=== PATIENT | female | born 1970 | race Caucasian/White ===

== ENCOUNTER 2018-07-12 17:19 | Inpatient (IN) | payer OTHER ==
[~2018-07-12] VITALS: Ht 162.6 cm; Wt 81.6 kg
[2018-07-12 19:00] VITALS: BP 105/45
--- NOTE | 2018-07-12 19:00 | NUR ---
RECEIVED BEDSIDE REPORT FROM YOSEF REA, PATIENT IN BED, C/O HEADACHE 08/26, V/S TAKEN NOTED BP 105/48 HR 74. IV IN LEFT AC 20G SL, DRESSING INTACT. ABLE TO FOLLOW COMMANDS, AAOX4, ADMISSION QUESTIONS COLLECTED, QUESTIONS ANSWERED, PLACED ON FALL RISK PRECAUTIONS, MRSA COLLECTED. WILL CALL DR DURON FOR ORDER.
--- NOTE | 2018-07-12 19:40 | NUR ---
PT C/O PAIN EXPLAINED WE NEED ORDERS FIRST PT STATED OKAY.
--- NOTE | 2018-07-12 20:30 | NUR ---
CALLED DR DURON FOR ORDER, WAITING FOR CALL BACK.
--- NOTE | 2018-07-12 20:45 | NUR ---
PATIENT AMBULATED TO RESTROOM , UNSTEADY GAIT, NEEDS ONE PERSON ASSIST.
--- NOTE | 2018-07-12 21:00 | NUR ---
CALL FROM DR DURON, ORDERS RECEIVED, WILL PUT IN ORDERS AND FOLLOW.
[2018-07-12] MEDS ORDERED: PROMETHAZINE DM 6.25/15MG-5ML ORASYR PO PRN (21:05)
[2018-07-12] MEDS ORDERED: ONDANSETRON 4 MG/2 ML VIAL IVP PRN (21:05)
[2018-07-12] MEDS: NACL 0.45% 1,000 ML IV SCH (21:36)
[2018-07-12] MEDS: ZOLPIDEM 5 MG TAB PO PRN (21:36)
[2018-07-12] MEDS: ACETAMINOPHEN 325 MG TAB PO PRN (21:36)
--- NOTE | 2018-07-12 21:36 | NUR ---
MEDICATED WITH TYLENOL ACCORDING TO MD ORDER. PATIENT C/O OF NOT BEING ABLE TO SLEEP, MEDICATED WITH AMBIEN. NO C/O CHEST PAIN OR COUGHING.
[2018-07-12 22:09] LABS: BASOPHILS % (AUTO) 0.5 % (0.0-2.0); EOSINOPHILS % (AUTO) 0.5 % (0.0-4.0); HEMATOCRIT 29.4 % (36-48); LYMPHOCYTES # (AUTO) 1.6 K/uL (2.5-16.5); LYMPHOCYTES % (AUTO) 27.3 % (20.5-51.1); MEAN CORPUSCULAR HEMOGLOBIN 22 pg (27-31); MEAN CORPUSCULAR HGB CONC 31 g/dL (33-37); MEAN CORPUSCULAR VOLUME 70.1 fL (80-94); MONOCYTES # (AUTO) 0.7 K/uL (0.8-1.0); MONOCYTES % (AUTO) 12.3 % (1.7-9.3); NEUTROPHILS # (AUTO) 3.5 K/uL (1.8-7.7); NEUTROPHILS % (AUTO) 59.4 % (42.2-75.2); PLATELET COUNT (AUTO) 225 K/uL (140-450); RED BLOOD CELL COUNT(AUTO) 4.19 MIL/uL (4.20-5.40); WHITE BLOOD COUNT (AUTO) 5.8 K/uL (4.8-10.8)
[2018-07-12 22:18] LABS: CARBON DIOXIDE 27.6 mmol/L (21-32); CREATININE 0.6 mg/dL (0.6-1.3); POTASSIUM 3.6 mmol/L (3.5-5.1)
[2018-07-12 22:35] LABS: CREATINE KINASE MB 0.7 ng/mL (0-3.6)
[2018-07-13] VITALS (9 sets, daily range): BP systolic 96–122; BP diastolic 41–88
--- NOTE | 2018-07-13 | NUR ---
V/S TAKEN ALL WITHIN BASELINE WILL CONTINUE TO MONITOR
--- NOTE | 2018-07-13 00:10 | NUR ---
EXPLAINED TO PATIENT OF ORDER FOR ORTHOSTATIC TEST, PATIENT REQUESTED TO SLEEP.
--- NOTE | 2018-07-13 01:30 | NUR ---
PATIENT DOES NOT WANT TO WEAR SCD, EDUCATION PROVIDED, WILL CONTINUE TO MONITOR.
--- NOTE | 2018-07-13 04:00 | NUR ---
V/S TAKEN ALL WITHIN BASELINE.
--- NOTE | 2018-07-13 04:30 | NUR ---
PATIENT C/O IV HURTING, D/C IV IN LEFT AC 20 G CATH INTACT. STARTED NEW IV IN LEFT HAND 22 G. INFUSING 1/2 NS AT 50 ML/HR.
--- NOTE | 2018-07-13 07:29 | NUR ---
ENDORSED PATIENT TO DAY SHIFT NURSE, PATIENT STABLE.
--- NOTE | 2018-07-13 07:30 | NUR ---
RECEIVED BEDSIDE REPORT FROM ASTROBIOLOGIST NURSE. PATIENT IS SLEEPING. NO SIGNS OF DISTRESS ON RA. PATIENT AMBULATES W ASSIST. FALL RISK PROTOCOL IN PLACE. SKIN IS INTACT. IV ON L HAND 22G INFUSING 1/2NS AT 50. CLEAN, DRY AND INTACT. PATIENT IS CONTINENT. NO COMPLAINTS AT THIS TIME. BED IN LOW POSITION. CALL LIGHT WITHIN REACH. WILL CONTINUE TO MONITOR THE PATIENT
[2018-07-13] MEDS: AZITHROMYCIN 250 MG TAB PO SCH (08:17)
--- NOTE | 2018-07-13 08:18 | NUR ---
ADMINISTERED [facility]. PATIENT TOLERATED WELL. PATIENT ON THE PHONE RIGHT NOW. WILL CONTINUE TO MONITOR THE PATIENT.
[2018-07-13] MEDS: ACETAMINOPHEN 325 MG TAB PO PRN ×2 (10:21→20:05)
--- NOTE | 2018-07-13 10:23 | NUR ---
PATIENT PICKED UP BY [employer]. PATIENT HAS RUIZ GAVE TYLENOL. [facility]UE [facility]
--- NOTE | 2018-07-13 10:47 | NUR ---
PATIENT BACK FROM XRAY. CONNECTED BACK TO IV. FAMILY AT BEDSIDE. WILL CONTINUE TO MONITOR
[2018-07-13] MEDS ORDERED: LACTULOSE 20 GM/30 ML UDC PO SCH (11:00)
[2018-07-13] MEDS: IBUPROFEN 600 MG TAB PO SCH ×2 (11:20→17:48)
--- NOTE | 2018-07-13 11:24 | NUR ---
ADMINISTERED MEDS. DID INFLUENZA SWAB. WILL WAIT FOR URINE SAMPLE
[2018-07-13 11:31] LABS: ALBUMIN 2.8 g/dL (3.4-5.0); BILIRUBIN,DIRECT 0.1 mg/dL (0.0-0.3); TOTAL BILIRUBIN 0.2 mg/dL (0.0-1.0)
--- NOTE | 2018-07-13 12:22 | NUR ---
PATIENT HAS BEEN SCREENED AND CATEGORIZED MODERATE NUTRITION RISK. PATIENT WILL BE SEEN WITHIN 3-5 DAYS OF ADMISSION. 07/15/18[address]
--- NOTE | 2018-07-13 13:00 | NUR ---
TOLD PATIENT IF SHE NEEDS TO URINATE THERE IS A HAT IN THE RESTROOM FOR HER BECAUSE I NEED A URINE SAMPLE. PATIENT VERBALIZED UNDERSTANDING
[2018-07-13] MEDS: NACL 0.45% 1,000 ML IV SCH ×2 (13:35→23:35)
--- NOTE | 2018-07-13 14:08 | NUR ---
PATIENT IS SLEEPING. NO SIGNS OF DISTRESS. WILL CONTINUE TO MONITOR THE PATIENT.
--- NOTE | 2018-07-13 15:03 | NUR ---
PATIENT COMPLAINTS OF ABDOMINAL CRAMPS. TOLD PATIENT IT MAY BE A SIDE AFFECT FROM LACTULOSE. HELPED PATIENT AMBULATE TO THE RESTROOM. PATIENT SAID SHE NEEDS TO URINATE AND HAVE A BM. TOLD PATIENT TO URINATE IN HAT FOR SAMPLE.
--- NOTE | 2018-07-13 15:33 | NUR ---
URINE SAMPLE COLLECTED AND SENT TO LAB. ADMINISTERED PRN COUGH MEDS. PATIENT TOLERATED WELL. WILL CONTINUE TO MONITOR THE PATIENT.
--- NOTE | 2018-07-13 15:55 | NUR ---
PATIENT SITTING IN BED COMMUNICATING W FAMILY. NO SIGNS OF DISTRESS. WILL CONTINUE TO MONITOR
--- NOTE | 2018-07-13 17:00 | NUR ---
PATIENT IN NO DISTRESS WATCHING TV. WILL CONTINUE TO MONITOR
[2018-07-13 17:10] LABS: APPEARANCE,URINE CLEAR (CLEAR); BILIRUBIN,URINE NEGATIVE (NEGATIVE); BLOOD, URINE NEGATIVE (NEGATIVE); COLOR,URINE YELLOW (YELLOW); LEUKOCYTE ESTERASE ,URINE NEGATIVE (NEGATIVE); NITRITE, URINE NEGATIVE (NEGATIVE); UGLUCOSE NEGATIVE (NEGATIVE)
--- NOTE | 2018-07-13 19:00 | NUR ---
GAVE BEDSIDE REPORT TO [employer] NURSE. PATIENT ENDORSED IN STABLE CONDITION
--- NOTE | 2018-07-13 19:30 | NUR ---
RECEIVED BEDSIDE REPORT FROM DAY SHIFT RN, PATIENT IN BED, ALERT AWAKE, FAMILY AT BEDSIDE, C/O RUIZ 08/26. V/S TAKEN ALL WITHIN BASELINE, NOTED BP 97/56. IVF INFUSING IN RIGHT HAND 22 G, DRESSING INTACT. EXPLAINED PLAN OF CARE UPDATED BORED WILL CONTINUE TO MONITOR.
[2018-07-13] MEDS: ZOLPIDEM 5 MG TAB PO PRN (20:05)
[2018-07-13] MEDS: DOCUSATE SODIUM 250 MG GELCAP PO SCH (20:05)
--- NOTE | 2018-07-13 21:00 | NUR ---
DUE MEDICATIONS GIVEN PATIENT TOLERATED WELL, GAVE TYLENOL FOR PAIN
--- NOTE | 2018-07-13 22:30 | NUR ---
0.45 NS INFUSING IN RIGHT HAND AT 100 ML/HR.
[2018-07-14] VITALS: BP 108/62
--- NOTE | 2018-07-14 00:10 | NUR ---
V/S TAKEN ALL WITHIN BASELINE, PATIENT DENIES PAIN WILL CONTINUE TO MONITOR.
--- NOTE | 2018-07-14 02:00 | NUR ---
PATIENT RESTING IN BED, CALL LIGHT WITHIN REACH WILL CONTINUE TO MONITOR.
[2018-07-14 04:00] VITALS: BP 102/60
--- NOTE | 2018-07-14 04:00 | NUR ---
V/S TAKEN ALL WITHIN BASELINE
--- NOTE | 2018-07-14 06:04 | NUR ---
PATIENT REPORTED NO MORE BM, PATIENT IS COMFORTABLE AND IN BED.
--- NOTE | 2018-07-14 07:15 | NUR ---
RECEIVED PATIENT REPORT AT BEDSIDE. PATIENT ASLEEP BUT AROUSABLE. NO S/S OF DISTRESS. PATIENT ON ROOM AIR. NO SOB. PT ON TELE MONITORING. BED LOWERED WITH CALL LIGHT WITHIN REACH. WILL CONTINUE TO MONITOR
--- NOTE | 2018-07-14 07:23 | NUR ---
ENDORSED TO DAY SHIFT RN, PATIENT STABLE.
[2018-07-14 08:00] VITALS: BP 108/89
[2018-07-14] MEDS: AZITHROMYCIN 250 MG TAB PO SCH (08:38)
[2018-07-14] MEDS: IBUPROFEN 600 MG TAB PO SCH (08:38)
[2018-07-14] MEDS: DOCUSATE SODIUM 250 MG GELCAP PO SCH (08:38)
[2018-07-14] MEDS: NACL 0.45% 1,000 ML IV SCH (09:35)
[2018-07-14] MEDS ORDERED: PROM118S4 PO (10:08)
[2018-07-14] MEDS ORDERED: LEVO500T2 PO (10:08)
--- NOTE | 2018-07-14 11:50 | NUR ---
PATIENT DISCHARGED TO HOME. DISCHARGE PRESCRIPTIONS AND DISCHARGE INSTRUCTIONS GIVEN. PATIENT VERBALIZED UNDERSTANDING. IV LINE DISCONTINUED. TELE MONITOR TAKEN OFF. PATIENT LEFT WITH ALL HER BELONGINGS AND DISCHARGE PAPERS. PATIENT LEFT IN STABLE CONDITION
== END 2018-07-14 11:50 | disposition home or self-care (01) | DRG 204 ==
LOC: MTU 19:00 → INTOOBSV 19:00 → UNDOADMIN 19:43 → MTU 19:43 → OBSVTOIN 07-13 01:05
PROVIDERS: ADMIT Internal Medicine; ATTEND Internal Medicine
DX: R55 Syncope and collapse (principal); E44.0 Moderate protein-calorie malnutrition; B34.9 Viral infection, unspecified; D50.9 Iron deficiency anemia, unspecified; K59.00 Constipation, unspecified
CPT/HCPCS: G0378 ×6; 36415; 74021; 80048; 80076; 81003; 82550; 82553; 83690; 84484; 85025; 87081; 87804; 93880; 97116; Q0092